=== PATIENT | female | born 1945 | race Hispanic/Latino ===

== ENCOUNTER → 2019-01-13 | Outpatient (CLI) | payer OTHER | END | disposition home or self-care (01) | LOC: OIH 15:27 | PROVIDERS: ATTEND Family Medicine | DX: M19.041 Primary osteoarthritis, right hand (principal); M21.931 Unspecified acquired deformity of right forearm; I70.208 Unspecified atherosclerosis of native arteries of extremities, other extremity | CPT/HCPCS: 73130 ==

== ENCOUNTER 2023-05-21 09:32 | Emergency (ER) | payer OTHER ==
[~2023-05-21] VITALS: Ht 167.6 cm; Wt 95.3 kg
[2023-05-21 09:57] LABS: MEAN CORPUSCULAR HEMOGLOBIN 32.8 pg (27.0-33.0); MEAN CORPUSCULAR HGB CONC 34.4 g/dL (32.0-36.0); MEAN CORPUSCULAR VOLUME 95.6 fL (79-99); PLATELET COUNT (AUTO) 168 K/uL (130-400); RED BLOOD CELL COUNT(AUTO) 4.08 MIL/uL (4.50-6.20); RED CELL DISTRIBUTION WIDTH 12.8 % (11.0-15.5); WHITE BLOOD COUNT (AUTO) 6.7 K/uL (4.8-10.8)
[2023-05-21 10:08] LABS: CREATININE 0.9 mg/dL (0.5-1.5); POTASSIUM 3.7 mmol/L (3.5-5.1)
[2023-05-21 10:12] LABS: ALBUMIN 3.7 g/dL (3.5-5.0); BILIRUBIN,TOTAL 0.9 mg/dL (0.2-1.0); TOTAL PROTEIN, SERUM 7.2 g/dL (6.0-8.3)
[2023-05-21 10:34] LABS: BAND NEUTROPHILS % (MANUAL) 4 % (0-2); EOSINOPHILS % (MANUAL) 3 % (1-6); LYMPHOCYTES % (MANUAL) 24 % (22-44); MONOCYTES % (MANUAL) 6 % (2-9); SEGMENTED NEUTROPHILS % 63 % (40-70); TOTAL CELLS COUNTED 100
[2023-05-21 10:36] LABS: MAN.DIFF COMMENT-IMPRESSION MANUAL DIFFERENTIAL; PLATELET MORPHOLOGY COMMENT ADEQUATE; WBC MORPHOLOGY CONSISTENT W/DIFF
[2023-05-21 10:38] LABS: APPEARANCE,URINE CLEAR (CLEAR); BILIRUBIN,URINE NEGATIVE (NEGATIVE); GLUCOSE, URINE (UA) 200 mg/dL (NEGATIVE); KETONES,URINE NEGATIVE (NEGATIVE); LEUKOCYTE ESTERASE ,URINE NEGATIVE Leu/uL (NEGATIVE); NITRATE,URINE NEGATIVE (NEGATIVE); PH,URINE 6.5 (5.0-8.0); PROTEIN,URINE 10 mg/dL (NEGATIVE); UROBILINOGEN,URINE 0.2 mg/dL (0.2-1.0)
[2023-05-21 10:39] LABS: ADD UA MICROSCOPIC YES; COLOR,URINE YELLOW (YELLOW)
[2023-05-21 10:41] LABS: BACTERIA,URINE RARE /HPF (None Seen); MUCUS,URINE RARE LPF (None Seen); SQUAMOUS EPITHELIAL CELL,UR RARE /HPF (0-2); WBC,URINE 0-1 /HPF (0-1)
[2023-05-21 13:15] VITALS: BP 129/68; PULSE 62; RESP 16; O2SAT 97
== END 2023-05-21 14:45 | disposition home or self-care (01) ==
LOC: EDSEX 09:32 → EDH 09:32
DX: S06.5XAA Traumatic subdural hemorrhage with loss of consciousness status unknown, initial encounter (principal); R55 Syncope and collapse; R20.2 Paresthesia of skin; E11.9 Type 2 diabetes mellitus without complications; F03.90 Unspecified dementia, unspecified severity, without behavioral disturbance, psychotic disturbance, mood disturbance, and anxiety; X58.XXXA Exposure to other specified factors, initial encounter; Y93.89 Activity, other specified; Y92.89 Other specified places as the place of occurrence of the external cause; Y99.8 Other external cause status
CPT/HCPCS: 36415; 70450; 80053; 81001; 82948; 84484; 85025; 93005

== ENCOUNTER → 2023-10-30 | Outpatient (CLI) | payer OTHER ==
[2023-10-30 21:21] VITALS: PULSE 68; RESP 16
[2023-10-30 22:10] VITALS: PULSE 60; RESP 14
[2023-10-30 22:34] VITALS: PULSE 60; RESP 14
[2023-10-30 23:06] VITALS: PULSE 60; RESP 16
[2023-10-30 23:30] VITALS: PULSE 60; RESP 18
[2023-10-31] VITALS (9 sets, daily range): PULSE 60–74; RESP 14–20
== END ==
LOC: SLP 19:57
PROVIDERS: ATTEND Family Medicine
DX: G47.33 Obstructive sleep apnea (adult) (pediatric) (principal)
CPT/HCPCS: 95810

== ENCOUNTER → 2024-03-12 | Outpatient (CLI) | payer OTHER | END | disposition home or self-care (01) | LOC: RAH 10:00 | PROVIDERS: ATTEND Family Medicine | DX: M19.011 Primary osteoarthritis, right shoulder (principal); M25.511 Pain in right shoulder; M06.4 Inflammatory polyarthropathy | CPT/HCPCS: 73030 ==

== ENCOUNTER 2024-10-10 03:19 | Observation (INO) | payer OTHER, MEDICARE ==
[~2024-10-10] VITALS: Ht 165.1 cm; Wt 90.4 kg
--- NOTE | 2024-10-10 04:01 | NUR ---
URINAL WITHIN REACH
[2024-10-10 04:06] LABS: BASOPHILS # (AUTO) 0.06 K/uL (0.00-0.20); BASOPHILS % (AUTO) 0.5 % (0.0-5.0); EOSINOPHILS # (AUTO) 0.22 K/uL (0.00-0.70); EOSINOPHILS % (AUTO) 1.7 % (0.0-8.0); HEMATOCRIT 35.4 % (42-54); IMMATURE GRANULOCYTE ABSOLUTE 0.07 K/uL (0-1); LYMPHOCYTES # (AUTO) 1.1 K/uL (1.0-4.8); MEAN CORPUSCULAR HEMOGLOBIN 31.2 pg (27.0-33.0); MEAN CORPUSCULAR HGB CONC 33.1 g/dL (32.0-36.0); MEAN CORPUSCULAR VOLUME 94.4 fL (79-99); MONOCYTES % (AUTO) 7.5 % (3.0-13.0); NEUTROPHILS # (AUTO) 10.3 K/uL (1.8-7.7); NEUTROPHILS % (AUTO) 80.7 % (40.0-77.0); PLATELET COUNT (AUTO) 175 K/uL (130-400); RED BLOOD CELL COUNT(AUTO) 3.75 MIL/uL (4.50-6.20); RED CELL DISTRIBUTION WIDTH 13.6 % (11.0-15.5); WHITE BLOOD COUNT (AUTO) 12.7 K/uL (4.8-10.8)
[2024-10-10 04:17] LABS: CREATININE 0.9 mg/dL (0.5-1.3); POTASSIUM 3.8 mmol/L (3.5-5.1)
--- NOTE | 2024-10-10 04:27 | NUR ---
PATIENT TRYING TO URINATE FOR SAMPLE.
[2024-10-10 04:32] LABS: WBC MORPHOLOGY CONSISTENT W/DIFF
[2024-10-10 04:46] LABS: APPEARANCE,URINE TURBID (CLEAR); BILIRUBIN,URINE NEGATIVE (NEGATIVE); COLOR,URINE ORANGE (YELLOW); GLUCOSE, URINE (UA) 50 mg/dL (NEGATIVE); KETONES,URINE NEGATIVE (NEGATIVE); LEUKOCYTE ESTERASE ,URINE 500 Leu/uL (NEGATIVE); NITRATE,URINE 2+ (NEGATIVE); OCCULT BLOOD,URINE LARGE (NEGATIVE); PROTEIN,URINE 300 mg/dL (NEGATIVE)
[2024-10-10 04:49] LABS: BACTERIA,URINE MOD /HPF (None Seen); MUCUS,URINE RARE LPF (None Seen); RBC,URINE TNTC /HPF (0-1); WBC CLUMP MANY /HPF (0-1); WBC,URINE TNTC /HPF (0-1)
[2024-10-10] MEDS: 0.9%NACL 1000ML 1,000 ML IV ONE (05:15)
[2024-10-10] MEDS: levoFLOXacin 500 MG/D5W 100 ML 100 ML IV ONE (05:18)
--- NOTE | 2024-10-10 05:26 | ERN ---
General Chief Complaint: Weakness Stated Complaint: GBW Time Seen by MD: 04:56 Source: patient History of Present Illness Initial Comments PATIENT IS A 78-YEAR-OLD GENTLEMAN COMING IN TO BE EVALUATED FOR GENERALIZED BODY WEAKNESS. PER PATIENT HE WAS BEING TREATED FOR URINARY TRACT INFECTION BUT STATES HE BELIEVES THIS IS A URINARY TRACT INFECTION STILL THERE. PATIENT WAS NOT IMPROVED WITH THE OUTPATIENT THERAPY. Allergies: Coded Allergies: Penicillins (Unverified Allergy, Unknown, 05/21/23) Past Medical History Past Medical History: Dementia, Diabetes-Type II, UTI, Other Medical History Other: TBI, ENLARGED PROSTATE Past Surgical History: Pacer/AICD, None ROS Dictation CONSTITUTIONAL: NO CHILLS, NO FEVER, NO WEAKNESS, NO DIAPHORESIS, NO MALAISE. HEAD/FACE: NO SIGNS OF TRAUMA. EENT: NO EYE PAIN, NO BLURRED VISION, NO TEARING, NO DOUBLE VISION, NO EAR PAIN, NO EAR DISCHARGE, NO NOSE PAIN, NO NASAL CONGESTION, NO THROAT PAIN, NO THROAT SWELLING, NO MOUTH PAIN. RESPIRATORY: NO COUGH, NO ORTHOPNEA, NO SOB, NO STRIDOR, NO WHEEZING. CARDIOVASCULAR: NO CHEST PAIN, NO EDEMA, NO PALPITATIONS, NO SYNCOPE. GASTROINTESTINAL/ABDOMINAL: NO ABDOMINAL PAIN, NO CONSTIPATION, NO DIARRHEA, NO NAUSEA, NO VOMITING. GENITOURINARY: NO ABNORMAL DISCHARGE, NO DYSURIA, NO FREQUENT URINATION, NO HEMATURIA. NO COMPLAINTS OF PAIN IN THE GENITALS. MUSCULOSKELETAL: NO BACK PAIN, NO GOUT, NO JOINT PAIN, NO JOINT SWELLING, NO MUSCLE PAIN, NO MUSCLE STIFFNESS, NO NECK PAIN. INTEGUMENTARY: NO CHANGE IN COLOR, NO CHANGE IN HAIR/NAILS, NO DRYNESS, NO LESION, NO LUMPS, NO RASH. NEUROLOGICAL/PSYCH: NO ANXIETY, NOT DEPRESSED, NO EMOTIONAL PROBLEM, NO HEADACHE, NO NUMBNESS, NO PRE-EXISTING DEFICIT, NO HISTORY OF SEIZURES, NO TREMORS, NO WEAKNESS. HEMATOLOGIC/LYMPHATIC: NOT ANEMIC, NO HISTORY OF BLOOD CLOTS, NO APPARENT BLEEDING, NO BRUISING, GLANDS NOT SWOLLEN. ALL SYSTEMS NEGATIVE, EXCEPT NOTED. Physical Exam Physical Exam Dictation VITAL SIGNS: REVIEWED. GENERAL APPEARANCE: ALERT, ORIENTED X3, NO ACUTE DISTRESS, OBESE. HEAD AND FACE: NON-TRAUMATIC. EYES: PERRL, PINK CONJUNCTIVAS, EYELID NO TRAUMA, ANTERIOR CHAMBER CLEAR. EARS: PINNAS INTACT AND NO SIGNS OF TRAUMA OR ERYTHEMA. EAR CANALS CLEAR AND NO DISCHARGE. TMS NO ERYTHEMA. NOSE: NO DISCHARGE, NO BLEEDING. OROPHARYNX: MOUTH NORMAL, TEETH NO CARIES, TONGUE PINK. PHARYNX CLEAR, NO ERYTHEMA. TONSILS NO EXUDATES, NO ABSCESSES NOTED. MUCOUS MEMBRANE MOIST. NECK: SUPPLE, NON-TENDER, NO THYROMEGALY, NO MASSES, NO JVD, NO BRUITS. BREAST: DEFERRED. CHEST: NO TENDERNESS, NO CREPITUS, NO PARADOXICAL MOVEMENT, NO RETRACTIONS. LUNGS: CLEAR, WELL-VENTILATED, SYMMETRIC, NO RALES, NO WHEEZING, NO RHONCHI, NO STRIDOR, GOOD BREATH SOUNDS BILATERALLY. HEART: REGULAR RATE, REGULAR RHYTHM, NO MURMUR, NO GALLOPS. VASCULAR: NO PERIPHERAL EDEMA. ABDOMEN: SOFT, POSITIVE BOWEL SOUNDS, NONDISTENDED, NO GUARDING, NONTENDER, NO REBOUND, NO MASSES NO HEPATOMEGALY, NO SPLENOMEGALY, NO MANLEY'S SIGN, NO HERNIAS. RECTAL: DEFERRED. GENITAL: DEFERRED. NEUROLOGICAL: NORMAL SPEECH, GROSS MOTOR FUNCTION INTACT, GROSS SENSORY FUNCTION INTACT. MUSCULOSKELETAL: NECK NONTENDER, FULL RANGE OF MOTION, BACK NONTENDER, FULL RANGE OF MOTION. EXTREMITIES: NONTENDER, FULL RANGE OF MOTION. SKIN: COLOR PINK, DRY, NO TURGOR, NO RASH, NO LACERATIONS, NO ABRASIONS, NO CONTUSIONS. LYMPHATICS: DEFERRED. Results Laboratory and Microbiology Lab and Micro Result Laboratory Tests Test 10/10/24 03:56 10/10/24 04:29 White Blood Count 12.7 K/uL (4.8-10.8) H Red Blood Count 3.75 MIL/uL (4.50-6.20) L Hemoglobin 11.7 g/dL (14.0-18.0) L Hematocrit 35.4 % (42-54) L Mean Corpuscular Volume 94.4 fL (79-99) Mean Corpuscular Hemoglobin 31.2 pg (27.0-33.0) Mean Corpuscular Hemoglobin Concent 33.1 g/dL (32.0-36.0) Red Cell Distribution Width 13.6 % (11.0-15.5) Platelet Count 175 K/uL (130-400) Mean Platelet Volume 11.4 fL (7.5-10.5) H Immature Granulocyte % (Auto) 0.6 % (0-1) Neutrophils (%) (Auto) 80.7 % (40.0-77.0) H Lymphocytes (%) (Auto) 9.0 % (21.0-51.0) L Monocytes (%) (Auto) 7.5 % (3.0-13.0) Eosinophils (%) (Auto) 1.7 % (0.0-8.0) Basophils (%) (Auto) 0.5 % (0.0-5.0) Neutrophils # (Auto) 10.3 K/uL (1.8-7.7) H Lymphocytes # (Auto) 1.1 K/uL (1.0-4.8) Monocytes # (Auto) 1.0 K/uL (0.1-1.0) Eosinophils # (Auto) 0.22 K/uL (0.00-0.70) Basophils # (Auto) 0.06 K/uL (0.00-0.20) Absolute Immature Granulocyte (auto 0.07 K/uL (0-1) Nucleated Red Blood Cells 0.0 % (0.0-0.19) White Cell Morphology Comment CONSISTENT W/DIFF Sodium Level 135 mmol/L (136-145) L Potassium Level 3.8 mmol/L (3.5-5.1) Chloride Level 102 mmol/L (101-111) Carbon Dioxide Level 26 mmol/L (21-32) Blood Urea Nitrogen 13 mg/dL (7-18) Creatinine 0.9 mg/dL (0.5-1.3) Glomerular Filtration Rate Calc 87 mL/min (>90) Random Glucose 210 mg/dL (70-105) H Lactic Acid Level 2.4 mmol/L (0.8-2.5) Total Calcium 8.7 mg/dL (8.5-10.1) Troponin I High Sensitivity 9 ng/L (4-75) Urine Color ORANGE (YELLOW) Urine Appearance TURBID (CLEAR) Urine pH 6.0 (5.0-8.0) Urine Specific [place] 1.020 (1.001-1.031) Urine Protein 300 mg/dL (NEGATIVE) H Urine Glucose (UA) 50 mg/dL (NEGATIVE) H Urine Ketones NEGATIVE mg/dL (NEGATIVE) Urine Occult Blood LARGE (NEGATIVE) H Urine Nitrate 2+ (NEGATIVE) H Urine Bilirubin NEGATIVE mg/dL (NEGATIVE) Urine Urobilinogen 2.0 mg/dL (0.2-1.0) H Urine Leukocyte Esterase 500 Alfredo/uL (NEGATIVE) H Urine RBC TNTC /HPF (0-1) H Urine WBC TNTC /HPF (0-1) H Urine WBC Clumps (Auto) MANY /HPF (0-1) Urine Bacteria MOD /HPF (None Seen) Labs Reviewed?: Yes MDM MDM: DIFFERENTIAL DIAGNOSIS: URINARY TRACT INFECTION, GENERALIZED BODY WEAKNESS, RATIONALE: TESTS CONSIDERED AND ORDERED SECONDARY TO SHARED DECISION MAKING INCLUDE: LABS, ECG AND RADIOLOGY PREVIOUS OUTSIDE RECORDS REVIEWED: OLD ER VISITS. RISK OF COMPLICATION AND/OR MORBIDITY OR MORTALITY OF PATIENT MANAGEMENT: NONE MEDICATIONS-PER MEDICATION RECONCILIATION NEED FOR HOSPITALIZATION: PATIENT DOES MEET CRITERIA FOR HOSPITALIZATION. NEED FOR EMERGENCY MAJOR/MINOR SURGERY: NO THERE ARE NO SOCIAL CONCERNS WITH THIS PATIENT. PRESCRIPTION DRUG MANAGEMENT PRESCRIPTIONS WILL INCLUDE SYMPTOMATIC CARE PATIENT'S PRIOR EXTERNAL MEDICAL RECORDS FROM OTHER ER VISITS WERE REVIEWED BY ME INDICATED. PRIOR TESTING AND RESULTS FROM PREVIOUS VISITS WERE REVIEWED. PRIOR TESTS WERE TAKEN INTO ACCOUNT WITH MEDICAL DECISION MAKING AND RESOURCE UTILIZATION, INDEPENDENT HISTORIAN/HISTORIANS WERE USED TO OBTAIN COMPLETE MEDICAL HISTORY. I INDEPENDENTLY INTERPRETED THE TEST THAT WERE PERFORMED, RESULTS WERE REVIEWED BY ME AND CONSIDERED FINDINGS ON RADIOLOGY IF ORDERED. MEDICAL MANAGEMENT AND EXAMINATION INTERPRETATION DISCUSSIONS WERE HAD BY ME WITH OTHER QUALIFIED HEALTHCARE PROFESSIONALS INDICATED FOR THE PATIENT'S CARE. PATIENT IS A 78-YEAR-OLD GENTLEMAN COMING IN TO BE EVALUATED FOR GENERALIZED BODY WEAKNESS. PATIENT WAS FOUND TO HAVE A URINARY TRACT INFECTION. PATIENT HAS BEEN TREATED WITH OUTPATIENT ANTIBIOTICS BUT HAS FAILED TO IMPROVE. PATIENT WILL BE ADMITTED UNDER THE CARE OF [facility] FOR ONGOING MANAGEMENT. ED Course Orders Procedure Category Date Status Time Cbc With Differential LAB 10/10/24 Complete 03:22 Basic Metabolic Panel LAB 10/10/24 Complete 03:22 Urinalysis LAB 10/10/24 Complete W/Microscopic 03:22 Troponin I High LAB 10/10/24 Complete Sensitivity 03:22 12 Lead Ekg Tracing- EKG 10/10/24 Complete Technical 03:22 Lactic Acid LAB 10/10/24 Complete 03:23 Culture Urine ANA LAURA 10/10/24 In Process 04:47 0.9%Nacl 1000ml (Ns PHA 10/10/24 Complete 1000ml) 05:30 Levofloxacin 500 PHA 10/10/24 In Process Mg/D5w 100 Ml 05:30 Current Medications Medications (Trade) Dose Ordered Sig/Yoly Route PRN Reason Start Time Stop Time Status Last Admin Dose Admin Levofloxacin/ Dextrose 100 ml @ 100 mls/hr ONCE ONCE IV 10/10/24 05:30 10/10/24 06:29 10/10/24 05:18 Sodium Chloride 1,000 ml @ 0 mls/hr ONCE ONCE IV 10/10/24 05:30 10/10/24 05:31 DC 10/10/24 05:15 Vital Signs Date Time Temp Pulse Resp B/P (MAP) Pulse Ox O2 Delivery O2 Flow Rate FiO2 10/10/24 05:27 60 18 106/53 95 Room Air* 0 21 10/10/24 03:58 67 18 106/58 97 Room Air* 0 21 10/10/24 03:21 100.8 77 20 120/66 97 Nasal Cannula 1.0 DX & DISP Disposition: Inpatient Decision to Admit Time: 05:36 Departure Impression: Primary Impression: Urinary tract infection Condition: Stable Referrals: NEAL CHURCHILL MD (PCP) ALLEN CASTANO MD Oct 10, 2024 05:26
--- NOTE | 2024-10-10 05:28 | EKG ---
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
--- NOTE | 2024-10-10 05:28 | NUR ---
PATIENT SLEEPING, AND DAUGHTER AT BEDSIDE.
[2024-10-10] MEDS ORDERED: GLUCAGON 1MG KIT 1 MG ML IM PRN (06:00)
[2024-10-10] MEDS ORDERED: ondanSETRON 4MG INJ IVP PRN (06:00)
[2024-10-10] MEDS ORDERED: DEXTROSE 50%-WATER 50 ML DISP.SYRIN IV PRN (06:00)
[2024-10-10] MEDS ORDERED: PoTASSium chloRIDE 20MEQ/100ML 100 ML IV PRN (06:00)
[2024-10-10] MEDS ORDERED: doCUSate SODIUM 100 MG CAP PO PRN (06:00)
[2024-10-10] MEDS ORDERED: PoTASSium chl 10% ELIXIR 20MEQ 20 MEQ/15 ML UDCUP PO PRN (06:00)
[2024-10-10] MEDS ORDERED: MAGNESIUM 2GM PREMIX 50ML 50 ML IV PRN (06:00)
[2024-10-10] MEDS ORDERED: hydrALAZine 20MG/ML VIAL IV PRN (06:00)
[2024-10-10] MEDS ORDERED: acetaMINOPHEN 325 MG TAB PO PRN (06:00)
[2024-10-10] MEDS ORDERED: acetaMINOPHEN 650 MG SUPPOSITORY RC PRN (06:00)
[2024-10-10] MEDS ORDERED: LACTULOSE 20 GM/30 ML UDCUP PO PRN (06:00)
[2024-10-10] MEDS ORDERED: TEMAZepam 15 MG CAPSULE PO PRN (06:00)
[2024-10-10 06:19] LABS: SARS-CoV-2, RNA, NAAT NEGATIVE SARS CoV-2 (NEGATIVE)
[2024-10-10 06:21] LABS: INFLUENZA TYPE A Negative For Type A (NEGATIVE); INFLUENZA TYPE B Negative For Type B (NEGATIVE)
[2024-10-10] MEDS: INSULIN humuLIN R 100 UNIT/ML 3ML SQ SCH (07:30)
[2024-10-10] MEDS: PANTOPrazole 40 MG TAB DR PO SCH (08:32)
[2024-10-10] MEDS ORDERED: FINA5TAB41 PO (16:26)
[2024-10-10] MEDS ORDERED: GLIP5TAB15 PO (16:26)
[2024-10-10] MEDS ORDERED: METF-446 PO (16:26)
[2024-10-10] MEDS ORDERED: ATOR10 PO (16:26)
[2024-10-10] MEDS ORDERED: MELO-106 PO (16:26)
[2024-10-10] MEDS ORDERED: TAMS-1 PO (16:26)
[2024-10-10] MEDS ORDERED: METO25TA6 PO (16:26)
[2024-10-10] MEDS ORDERED: NAPR-1194 PO (16:26)
[2024-10-10] MEDS ORDERED: DONE-51 PO (16:26)
--- NOTE | 2024-10-10 16:26 | NUR ---
HOME MEDICATIONS UPDATED ON EMR
--- NOTE | 2024-10-10 16:27 | HP ---
[facility] HISTORY & PHYSICAL Date Patient Seen: Oct 10, 2024 Time of Visit: 16:26 Supervising Physician: Dr. Rayshawn Aguirre Primary Care Physician: Dr. Alfonzo Spear Outpatient Specialists: [ ] Inpatient Consults: [ ] PROBLEM LIST: Recurrent acute cystitis, failed outpatient treatment Generalized body weakness Dementia Diabetes mellitus type 2 Recurrent UTIs Hypertension HPI: Patient is a 78-year-old male who was admitted to the ED for recurrent cystitis. Patient states that he was discharged from [facility] on oral antibiotics of which he does not recall the name. Patient followed up with his primary care provider Dr. Alfonzo Spear who obtained a urine culture and stated that the urine looked to be improved however today the patient continues with symptoms associated with fever, chills, all of which he states are recurring symptoms for him whenever he is diagnosed with a UTI. Patient is currently on IV levofloxacin. Patient is unable to control his voiding, on evaluation denies any pain but states that he wants to go home and does not want to be admitted to the hospital. at bedside spoke with him and patient is now agreeable to admit. Urine culture will be obtained, we will continue with levofloxacin for the time being pending updated information from the urine culture. Urinalysis is orange turbid, with a 500+ leuk esterase. PAST MEDICAL HX: see above PAST SURGICAL HX: noncontributory SOCIAL HISTORY: No tobacco, ETOH, or illicit drug use Coded Allergies: Penicillins (Unverified Allergy, Unknown, 05/21/23) REVIEW OF SYSTEMS: 12 point ROS reviewed with patient. Pertinent positives mentioned above. Otherwise negative. PHYSICAL EXAM: GENERAL: alert, weak, awake oriented x 3 HEENT: EOMI, Sclera non icteric, moist mucosa NECK: Supple, no JVD, trachea midline LUNGS: Clear breath sounds bilaterally. No wheezes HEART: Regular rate and rhythm. Normal S1 and S2, without murmurs ABD: Abdomen soft, nontender. Bowel sounds present EXT: No clubbing cyanosis or edema NEURO: Alert and oriented to person, follows commands Vital Signs (last 8hr) Date Time Temp Pulse Resp B/P (MAP) Pulse Ox O2 Delivery O2 Flow Rate FiO2 10/10/24 16:09 74 22 131/66 97 Room Air* 0 21 10/10/24 14:04 71 20 131/93 96 Room Air* 0 21 10/10/24 11:45 98.4 74 12 124/62 98 Room Air* 0 21 LABS: Hematology Labs: Test 10/10/24 03:56 Range/Units White Blood Count 12.7 H 4.8-10.8 K/uL Red Blood Count 3.75 L 4.50-6.20 MIL/uL Hemoglobin 11.7 L 14.0-18.0 g/dL Hematocrit 35.4 L 42-54 % Mean Corpuscular Volume 94.4 79-99 fL Mean Corpuscular Hemoglobin 31.2 27.0-33.0 pg Mean Corpuscular Hemoglobin Concent 33.1 32.0-36.0 g/dL Red Cell Distribution Width 13.6 11.0-15.5 % Platelet Count 175 130-400 K/uL Mean Platelet Volume 11.4 H 7.5-10.5 fL Immature Granulocyte % (Auto) 0.6 0-1 % Neutrophils (%) (Auto) 80.7 H 40.0-77.0 % Lymphocytes (%) (Auto) 9.0 L 21.0-51.0 % Monocytes (%) (Auto) 7.5 3.0-13.0 % Eosinophils (%) (Auto) 1.7 0.0-8.0 % Basophils (%) (Auto) 0.5 0.0-5.0 % Neutrophils # (Auto) 10.3 H 1.8-7.7 K/uL Lymphocytes # (Auto) 1.1 1.0-4.8 K/uL Monocytes # (Auto) 1.0 0.1-1.0 K/uL Eosinophils # (Auto) 0.22 0.00-0.70 K/uL Basophils # (Auto) 0.06 0.00-0.20 K/uL Absolute Immature Granulocyte (auto 0.07 0-1 K/uL Nucleated Red Blood Cells 0.0 0.0-0.19 % White Cell Morphology Comment CONSISTENT W/DIFF Chemistry Labs: Test 10/10/24 11:07 10/10/24 07:50 10/10/24 03:56 Range/Units Whole Blood Glucose 197 H 70-110 MG/DL Lactic Acid Level 1.7 0.8-2.5 mmol/L Sodium Level 135 L 136-145 mmol/L Potassium Level 3.8 3.5-5.1 mmol/L Chloride Level 102 101-111 mmol/L Carbon Dioxide Level 26 21-32 mmol/L Blood Urea Nitrogen 13 7-18 mg/dL Creatinine 0.9 0.5-1.3 mg/dL Glomerular Filtration Rate Calc 87 >90 mL/min Random Glucose 210 H 70-105 mg/dL Total Calcium 8.7 8.5-10.1 mg/dL Troponin I High Sensitivity 9 4-75 ng/L DIAGNOSTICS / RADIOLOGY RESULTS: [ ] PLAN NEURO: Minimize central acting medications as possible. Maintain fall precautions, adequate lighting during the day PULMONARY: Supplemental 02 as needed. Maintain aspiration precautions at all times CARDIOVASCULAR: Follow hemodynamics. Vital signs per facility protocol GI & NUTRITION: Continue with nutritional support. Continue stool softeners and laxatives as needed. KIDNEYS & ELECTROLYTES: Strict monitoring of intake, output and overall fluid balance. Avoid nephrotoxic medications to the extent possible. Medications to be dosed according to renal function. Monitor electrolytes and replace as needed ENDOCRINE: Maintain blood glucose between 100-180 at all times. Hypoglycemia protocol in place INFECTIOUS DISEASE: Trend temperature, WBC and procalcitonin level Follow cultures, deescalate antibiotics as soon as possible. Panculture if new onset fever ONCOLOGY/HEMATOLOGY/COAGULATION: Monitor for s/s of bleeding Monitor hemoglobin, coagulation studies as needed SKIN: Pressure ulcer prevention per facility protocol Specialty mattress ORTHO/REHAB: Continue PT/OT Prophylaxis: Continue GI and DVT prophylaxis Code Status: Full Resuscitation Disposition: TBD Other: Total patient care time exceeds 35 minutes excluding all procedures. DAISY BERRY Oct 10, 2024 16:27
[2024-10-11] MEDS: levoFLOXacin 500 MG/D5W 100 ML IV SCH (04:19)
--- NOTE | 2024-10-11 06:18 | NUR ---
REPORT GIVEN TO NURSE TERRI RN, PT BLOOD GLUCOSE 182, VITAL SIGN STABLE, NO DISTRESS NOTED, WILL CONT TO MONITOR
[2024-10-11 06:30] VITALS: BP 137/69; PULSE 71; RESP 20; TEMP 98.1
[2024-10-11 07:49] LABS: HEMATOCRIT 34.3 % (42-54); MEAN CORPUSCULAR HEMOGLOBIN 31.8 pg (27.0-33.0); MEAN CORPUSCULAR HGB CONC 33.8 g/dL (32.0-36.0); RED BLOOD CELL COUNT(AUTO) 3.65 MIL/uL (4.50-6.20); RED CELL DISTRIBUTION WIDTH 13.4 % (11.0-15.5); WHITE BLOOD COUNT (AUTO) 8.3 K/uL (4.8-10.8)
[2024-10-11 08:00] VITALS: BP 134/51; PULSE 74; RESP 19; TEMP 98; O2SAT 100
[2024-10-11 08:04] LABS: CREATININE 0.8 mg/dL (0.5-1.3); MAGNESIUM 1.8 mg/dL (1.80-2.40); PHOSPHORUS 3.1 mg/dL (2.5-4.9); POTASSIUM 3.5 mmol/L (3.5-5.1)
[2024-10-11 12:00] VITALS: BP 118/70; PULSE 84; RESP 21; TEMP 98.4
--- NOTE | 2024-10-11 12:10 | PN ---
[facility] PROGRESS NOTE Date Patient Seen: Oct 11, 2024 Time of Visit: 12:09 Supervising Physician: Dr. Rayshawn Aguirre Primary Care Physician: Dr. Alfonzo Spear Outpatient Specialists: [ ] Inpatient Consults: [ ] PROBLEM LIST: Recurrent acute cystitis, failed outpatient treatment Generalized body weakness Dementia Diabetes mellitus type 2 Recurrent UTIs Hypertension INTERVAL HISTORY: Patient evaluated at bedside with his present, states he is feeling better today, endorses that his only symptom was that he could not walk, urination is less painful today. Patient continues on IV Levaquin, urine cultures positive for sample, pending susceptibilities at this time and identification. Patient's white count today is 8.3, down from 12.7 yesterday, hemoglobin remained stable. Patient was several questions regarding the failure of his outpatient treatment from his last infection, also states that his PCP has a pending culture that they have not received results four. We will reach out to Dr. Zimmer PCP tomorrow to see if we can get results from there culture in order to speed up the process of his discharge. Otherwise pending results from the urine culture collected on admission. REVIEW OF SYSTEMS: 12 point ROS reviewed with patient. Pertinent positives mentioned above. Otherwise negative. PHYSICAL EXAM: GENERAL: alert, weak, awake oriented x 3 HEENT: EOMI, Sclera non icteric, moist mucosa NECK: Supple, no JVD, trachea midline LUNGS: Clear breath sounds bilaterally. No wheezes HEART: Regular rate and rhythm. Normal S1 and S2, without murmurs ABD: Abdomen soft, nontender. Bowel sounds present EXT: No clubbing cyanosis or edema NEURO: Alert and oriented to person, follows commands Vital Signs (last 8hr) Date Time Temp Pulse Resp B/P (MAP) Pulse Ox O2 Delivery O2 Flow Rate FiO2 10/11/24 08:00 98.1 74 19 134/51 100 Room Air 10/11/24 06:30 98.1 71 20 137/69 95 Room Air 10/11/24 06:14 98.6 70 18 127/70 97 Room Air* 0 21 LABS: Hematology Labs: Test 10/11/24 07:40 10/10/24 03:56 Range/Units White Blood Count 8.3 4.8-10.8 K/uL Red Blood Count 3.65 L 4.50-6.20 MIL/uL Hemoglobin 11.6 L 14.0-18.0 g/dL Hematocrit 34.3 L 42-54 % Mean Corpuscular Volume 94.0 79-99 fL Mean Corpuscular Hemoglobin 31.8 27.0-33.0 pg Mean Corpuscular Hemoglobin Concent 33.8 32.0-36.0 g/dL Red Cell Distribution Width 13.4 11.0-15.5 % Platelet Count 171 130-400 K/uL Mean Platelet Volume 11.0 H 7.5-10.5 fL Nucleated Red Blood Cells 0.0 0.0-0.19 % Immature Granulocyte % (Auto) 0.6 0-1 % Neutrophils (%) (Auto) 80.7 H 40.0-77.0 % Lymphocytes (%) (Auto) 9.0 L 21.0-51.0 % Monocytes (%) (Auto) 7.5 3.0-13.0 % Eosinophils (%) (Auto) 1.7 0.0-8.0 % Basophils (%) (Auto) 0.5 0.0-5.0 % Neutrophils # (Auto) 10.3 H 1.8-7.7 K/uL Lymphocytes # (Auto) 1.1 1.0-4.8 K/uL Monocytes # (Auto) 1.0 0.1-1.0 K/uL Eosinophils # (Auto) 0.22 0.00-0.70 K/uL Basophils # (Auto) 0.06 0.00-0.20 K/uL Absolute Immature Granulocyte (auto 0.07 0-1 K/uL White Cell Morphology Comment CONSISTENT W/DIFF Chemistry Labs: Test 10/11/24 11:19 10/11/24 07:40 10/10/24 07:50 10/10/24 03:56 Range/Units Whole Blood Glucose 253 H 70-110 MG/DL Sodium Level 135 L 136-145 mmol/L Potassium Level 3.5 3.5-5.1 mmol/L Chloride Level 99 L 101-111 mmol/L Carbon Dioxide Level 27 21-32 mmol/L Blood Urea Nitrogen 7 7-18 mg/dL Creatinine 0.8 0.5-1.3 mg/dL Glomerular Filtration Rate Calc 91 >90 mL/min Random Glucose 232 H 70-105 mg/dL Total Calcium 8.5 8.5-10.1 mg/dL Phosphorus Level 3.1 2.5-4.9 mg/dL Magnesium Level 1.80 1.80-2.40 mg/dL Lactic Acid Level 1.7 0.8-2.5 mmol/L Troponin I High Sensitivity 9 4-75 ng/L DIAGNOSTICS / RADIOLOGY RESULTS: [ ] PLAN NEURO: Minimize central acting medications as possible. Maintain fall precautions, adequate lighting during the day PULMONARY: Supplemental 02 as needed. Maintain aspiration precautions at all times CARDIOVASCULAR: Follow hemodynamics. Vital signs per facility protocol GI & NUTRITION: Continue with nutritional support. Continue stool softeners and laxatives as needed. KIDNEYS & ELECTROLYTES: Strict monitoring of intake, output and overall fluid balance. Avoid nephrotoxic medications to the extent possible. Medications to be dosed according to renal function. Monitor electrolytes and replace as needed ENDOCRINE: Maintain blood glucose between 100-180 at all times. Hypoglycemia protocol in place INFECTIOUS DISEASE: Trend temperature, WBC and procalcitonin level Follow cultures, deescalate antibiotics as soon as possible. Panculture if new onset fever ONCOLOGY/HEMATOLOGY/COAGULATION: Monitor for s/s of bleeding Monitor hemoglobin, coagulation studies as needed SKIN: Pressure ulcer prevention per facility protocol Specialty mattress ORTHO/REHAB: Continue PT/OT Prophylaxis: Continue GI and DVT prophylaxis Code Status: Full Resuscitation Disposition: TBD Other: Total patient care time exceeds 35 minutes excluding all procedures. DAISY BERRY Oct 11, 2024 12:10
[2024-10-11 16:00] VITALS: BP 136/74; PULSE 74; RESP 19; TEMP 98.2
[2024-10-11 20:00] VITALS: BP 125/70; PULSE 82; RESP 28; TEMP 98.5
[2024-10-11 20:55] VITALS: O2SAT 95
[2024-10-11] MEDS: atorVAStatin 10 MG TABLET PO SCH (20:55)
[2024-10-11] MEDS: doNEPEZil HCL 5 MG TAB PO SCH (20:55)
[2024-10-11] MEDS: metoPROLOL tartRATE 25 MG TAB PO SCH (20:55)
[2024-10-11] MEDS: PoTASSium chloRIDE 20MEQ ER 20 MEQ ERTAB PO PRN (20:56)
[2024-10-12] VITALS: BP 148/71; PULSE 70; RESP 28; TEMP 97.9
[2024-10-12 01:02] VITALS: RESP 22
[2024-10-12 03:51] VITALS: BP 128/68; PULSE 69; RESP 24; TEMP 97.6
[2024-10-12 04:56] LABS: HEMATOCRIT 35.5 % (42-54); MEAN CORPUSCULAR HEMOGLOBIN 31.1 pg (27.0-33.0); MEAN CORPUSCULAR HGB CONC 33.2 g/dL (32.0-36.0); MEAN CORPUSCULAR VOLUME 93.7 fL (79-99); RED BLOOD CELL COUNT(AUTO) 3.79 MIL/uL (4.50-6.20); RED CELL DISTRIBUTION WIDTH 13.2 % (11.0-15.5); WHITE BLOOD COUNT (AUTO) 7.5 K/uL (4.8-10.8)
[2024-10-12 05:10] LABS: CREATININE 0.8 mg/dL (0.5-1.3); POTASSIUM 3.8 mmol/L (3.5-5.1)
[2024-10-12 08:00] VITALS: BP 121/60; PULSE 62; RESP 18; TEMP 98; O2SAT 96
[2024-10-12] MEDS: finaSTERide 5 MG TABLET PO SCH (09:28)
[2024-10-12] MEDS: tamSULOsin HCL 0.4 MG CAP.ER.24H PO SCH (09:32)
[2024-10-12] MEDS ORDERED: LEVO750T40 PO (10:28)
[2024-10-12 12:00] VITALS: BP 116/60; PULSE 70; RESP 20; TEMP 98.2
--- NOTE | 2024-10-12 13:25 | NUR ---
DISCHARGE NOTE IV AND ID bands removed. Discharge instructions given (written) and explained to patient. Medication prescription verified to pharmacy of choice. Belongings packed and taken by patient and family. Patient taken down by wheelchair to private car.
--- NOTE | 2024-10-12 13:59 | NUR ---
DCP Per Lesly Larson, Spouse/POA [phone], states patient has dementia and will provide history. Patient lives with Lesly Larson, Spouse/POA [phone] and Wendy Seth Daughter [phone]; in a house with walk in shower with bench. States retired/disabled with dementia. States full assist of ADL's. States patient has a cane, walker with a seat, wheelchair and bedside commode. Denies home health services or dialysis. Home care provider [facility] for ten hours a week and a nurse that supervises every three months. PCP - Alfonzo Spera MD Pharmacy - [facility]. Upon discharge, Lesly Larson, Spouse/POA [phone], Wendy Seth Daughter [phone] and assist with care. They do not foresee additional needs at this time. Addendum: 10/12/24 at 1405 by ANGELA CRABTREE RN CM Amended: Links added.
--- NOTE | 2024-10-12 14:21 | DS ---
[facility] DISCHARGE SUMMARY Date Patient Seen: Oct 12, 2024 Time of Visit: 14:17 Supervising Physician: Dr. Tremayne Miranda Primary Care Physician: Dr. Alfonzo Spear Outpatient Specialists: [ ] Inpatient Consults: [ ] HOSPITAL COURSE: HPI (per admitting provider) Patient is a 78-year-old male who was admitted to the ED for recurrent cystitis. Patient states that he was discharged from [facility] on oral antibiotics of which he does not recall the name. Patient followed up with his primary care provider Dr. Alfonzo Spear who obtained a urine culture and stated that the urine looked to be improved however today the patient continues with symptoms associated with fever, chills, all of which he states are recurring symptoms for him whenever he is diagnosed with a UTI. Patient is currently on IV levofloxacin. Patient is unable to control his voiding, on evaluation denies any pain but states that he wants to go home and does not want to be admitted to the hospital. at bedside spoke with him and patient is now agreeable to admit. Urine culture will be obtained, we will continue with levofloxacin for the time being pending updated information from the urine culture. Urinalysis is orange turbid, with a 500+ leuk esterase. The patient was treated for the following problems: Patient was being discharged of a seven day course of 750 mg Levaquin due to previously failed outpatient antibiotic therapy for recurrent cystitis. Patient advised to follow up with his PCP often over the course of the next several weeks to ensure resolution ACTIVE PROBLEM LIST FOR THE HOSPITALIZATION: Recurrent acute cystitis, failed outpatient treatment Generalized body weakness CHRONIC PROBLEMS: continue previous management per PCP unless otherwise indicated Dementia Diabetes mellitus type 2 Recurrent UTIs Hypertension BARREL REAMER FINDINGS/RECOMMENDATIONS: [ ] PROCEDURES: as mentioned above DISCHARGE MEDICATIONS: Pt hemodynamically stable and afebrile at time of discharge. PCP notified of patients admission, hospital course and discharge. PHYSICAL EXAM: GENERAL: alert, weak, awake oriented x 3 HEENT: EOMI, Sclera non icteric, moist mucosa NECK: Supple, no JVD, trachea midline LUNGS: Clear breath sounds bilaterally. No wheezes HEART: Regular rate and rhythm. Normal S1 and S2, without murmurs ABD: Abdomen soft, nontender. Bowel sounds present EXT: No clubbing cyanosis or edema NEURO: Alert and oriented to person, follows commands FOLLOW-UP: Follow-up with PCP in 2-3 days RECOMMENDATIONS: See Discharge Instructions This case was seen and discussed with my supervising physician. More than 30 minutes spent on discharge process, including evaluation of the patient, discussion with nursing staff, medication reconciliation and follow-up appointments DAISY BERRY Oct 12, 2024 14:21
== END 2024-10-12 13:35 | disposition home or self-care (01) ==
LOC: EDH 03:19 → EDHIP 03:20 → 3BH 10-11 06:09
PROVIDERS: ADMIT Internal Medicine; ATTEND Internal Medicine
DX: F03.90 Unspecified dementia, unspecified severity, without behavioral disturbance, psychotic disturbance, mood disturbance, and anxiety (principal); I10 Essential (primary) hypertension; N30.00 Acute cystitis without hematuria; E11.9 Type 2 diabetes mellitus without complications; N40.0 Benign prostatic hyperplasia without lower urinary tract symptoms; R53.1 Weakness; Z88.0 Allergy status to penicillin; Z98.890 Other specified postprocedural states; Z79.899 Other long term (current) drug therapy; Z20.822 Contact with and (suspected) exposure to COVID-19
CPT/HCPCS: 96365; 96366 ×2; 99284; 84484; 80048 ×3; 85025; 87086 ×2; 87186; 87804 ×2; 82948 ×10; 83605 ×2; 81001; 36415 ×3; 87635; 93005; 96376; 83735; 84100; 85027 ×2; 97161; 97116; 97530 ×2; J1815 ×8; G0378 ×55; J1956 ×3; J7030